=== PATIENT | female | born 1990 | race Caucasian/White ===

== ENCOUNTER 2018-05-21 08:01 | Emergency (ER) | payer OTHER ==
[2018-05-21 08:36] LABS: GLUCOSE, URINE (UA) NEGATIVE (NEGATIVE); KETONES,URINE (UA) >=80 mg/dL (NEGATIVE); LEUKOCYTE ESTERASE, URINE SMALL (NEGATIVE); NITRITE,URINE NEGATIVE (NEGATIVE); OCCULT BLOOD,URINE TRACE-LYSE (NEGATIVE); PROTEIN,URINE 30 mg/dL (NEGATIVE); UROBILINOGEN,URINE 1 (NORMAL) E.U./dL (NORMAL)
[2018-05-21 08:42] LABS: BASOPHILS # (AUTO) 0.1 10^3/uL (0.0-0.1); BASOPHILS % (AUTO) 0.5 %; EOSINOPHILS % (AUTO) 0.4 %; LYMPHOCYTES # (AUTO) 2.2 10^3/uL (1.5-3.5); LYMPHOCYTES % (AUTO) 20.6 %; MEAN CORPUSCULAR HEMOGLOBIN 29.6 pg (27.0-31.0); MEAN CORPUSCULAR HGB CONC 34.2 g/dL (32.0-36.0); MEAN CORPUSCULAR VOLUME 86.6 fL (81.0-99.0); MEAN PLATELET VOLUME 9.7 fL (7.9-10.8); MONOCYTES # (AUTO) 0.4 10^3/uL (0.0-1.0); MONOCYTES % (AUTO) 3.7 %; NEUTROPHILS # (AUTO) 8.1 10^3/uL (1.5-6.6); NEUTROPHILS % (AUTO) 74.8 %; PLT - PLATELET COUNT 225 10^3/uL (130-450); RED BLOOD COUNT 4.38 10^6/uL (4.20-5.40); WHITE BLOOD COUNT 10.8 x10^3/uL (4.8-10.8)
[2018-05-21 08:44] LABS: BILIRUBIN,URINE SMALL (NEGATIVE); CLARITY,URINE CLOUDY (CLEAR); HCG UR QUAL POSITIVE; ICTOTEST,URINE POSITIVE
[2018-05-21 08:53] LABS: BACTERIA,URINE Few /HPF (None Seen); MUCUS,URINE Moderate Strands; RBC,URINE 0-5 /HPF (0-5); SQUAMOUS EPITHELIAL CELL,UR MOD Squamous (<= Few)
[2018-05-21 08:58] LABS: ALBUMIN/GLOBULIN RATIO 1.3 (1.0-2.2); BILIRUBIN,TOTAL 0.9 mg/dL (0.2-1.0); CALCIUM 9.3 mg/dL (8.5-10.3); CREATININE 0.5 mg/dL (0.4-1.0); TOTAL PROTEIN 7.2 g/dL (6.7-8.2)
[2018-05-21] MEDS ORDERED: SODIUM CHLORIDE 0.9% 1,000 ML IV ONE (09:03)
--- NOTE | 2018-05-21 09:07 | ED Physician Documentation ---
History of Present Illness - Stated complaint Stated Complaint: SEIZURE - Chief complaint Chief Complaint: Neuro - History obtained from History obtained from: Patient, Family - History of Present Illness Timing: Today Pain level max: 0 Pain level now: 0 Improved by: nothing Worsened by: nothing - Additonal information Additional information: 27-year-old female was at home this morning talking to her when she felt lightheaded dizzy, flushed and warm. Crosby her vision go dark. states that she was standing" convulsing", this lasted for a few seconds she was speaking to him during this time. She then fell onto the floor and had convulsions that lasted approximately 30 seconds. No urinary incontinence. No bowel incontinence. No tongue biting. No head injury. Has never had seizures before. She has been having nausea and vomiting for the past 3-4 weeks. She has 3-4 weeks late on her menses. She did not appear to have a postictal state per the . Review of Systems Constitutional: denies: Fever, Chills Respiratory: denies: Cough GI: denies: Vomiting, Diarrhea Skin: denies: Rash Musculoskeletal: denies: Neck pain, Back pain Neurologic: reports: Headache (had a slight headache earlier. none now). denies: Focal weakness, Numbness, Confused PD PAST MEDICAL HISTORY - Past Medical History Past Medical History: No - Past Surgical History Past Surgical History: No - Present Medications Home Medications: Ambulatory Orders Medication Instructions Recorded Confirmed Nitrofurantoin Monohyd/M-Cryst 100 mg PO BID #10 capsule 05/21/18 [Macrobid 100 mg Capsule] Vitamin [Trinatal Rx 1] 1 each PO DAILY #30 tablet 05/21/18 - Allergies Allergies/Adverse Reactions: Allergies Allergy/AdvReac Type Severity Reaction Status Date / Time No Known Drug Allergies Allergy Verified 05/21/18 09:08 - Living Situation Living Situation: reports: With family Living Arrangement: reports: At home - Social History Does the pt smoke?: No Does the pt drink ETOH?: No Does the pt have substance abuse?: No - Family History Family history: reports: Non contributory - Immunizations Immunizations are current?: Yes PD ED PE NORMAL - Vitals Vital signs reviewed: Yes - General General: Alert and oriented X 3, No acute distress, Well developed/nourished - HEENT HEENT: Atraumatic, PERRL, EOMI, Ears normal, Moist mucous membranes, Pharynx benign - Neck Neck: Supple, no meningeal sign, No bony TTP - Cardiac Cardiac: RRR, No murmur, Strong equal pulses - Respiratory Respiratory: No respiratory distress, Clear bilaterally - Abdomen Abdomen: Soft, Non tender, Non distended - Derm Derm: Warm and dry, No rash - Extremities Extremities: No edema - Neuro Neuro: Alert and oriented X 3, communication coordinator 2-12 intact, No motor deficit, No sensory deficit, Normal speech Eye Opening: Spontaneous Motor: Obeys Commands Verbal: Oriented GCS Score: 15 - Psych Psych: Normal mood, Normal affect Results - Vitals Vitals: Vital Signs - 24 hr 05/21/18 05/21/18 05/21/18 08:06 09:01 09:30 Temperature 36.7 C Heart Rate 84 82 82 Respiratory 14 16 16 Rate Blood Pressure 113/69 106/67 107/82 H O2 Saturation 100 100 05/21/18 05/21/18 11:30 12:00 Temperature Heart Rate 80 75 Respiratory 16 16 Rate Blood Pressure 116/73 107/55 L O2 Saturation 97 98 Oxygen O2 Source Room air - EKG (time done) 0916 Rate: Rate (enter#) (73) Rhythm: NSR Huxley: Normal Intervals: Normal WI QRS: Normal Ischemia: Normal ST segments Computer interpretation: Agree with computer - Labs Labs: Laboratory Tests 05/21/18 05/21/18 05/21/18 08:12 08:20 08:30 WBC 10.8 RBC 4.38 Hgb 13.0 Hct 37.9 MCV 86.6 MCH 29.6 MCHC 34.2 RDW 12.0 Plt Count 225 MPV 9.7 Neut # (Auto) 8.1 H Lymph # (Auto) 2.2 Mobile # (Auto) 0.4 Eos # (Auto) 0.0 Baso # (Auto) 0.1 Absolute Nucleated RBC 0.01 Nucleated RBC % 0.1 Sodium Potassium Chloride Carbon Dioxide Anion Gap BUN Creatinine Estimated GFR (MDRD) Glucose POC Whole Bld Glucose 77 Calcium Phosphorus Magnesium Total Bilirubin AST ALT Alkaline Phosphatase Total Protein Albumin Globulin Albumin/Globulin Ratio Lipase HCG, Quant Urine Color YELLOW Urine Clarity CLOUDY Urine pH 6.0 Ur Specific [place] >=1.030 H Urine Protein 30 H Urine Glucose (UA) NEGATIVE Urine Ketones >=80 H Urine Occult Blood TRACE-LYSE Urine Nitrite NEGATIVE Urine Bilirubin SMALL H Urine Urobilinogen 1 (NORMAL) Ur Leukocyte Esterase SMALL H Urine RBC 0-5 Urine WBC 11-25 H Ur Squamous Epith Cells MOD Squamous H Urine Bacteria Few Urine Mucus Moderate Strands Ur Microscopic Review INDICATED Urine Culture Comments NOT INDICATED Urine HCG, Qual POSITIVE 05/21/18 05/21/18 05/21/18 08:30 08:30 09:21 WBC RBC Hgb Hct MCV MCH MCHC RDW Plt Count MPV Neut # (Auto) Lymph # (Auto) Mobile # (Auto) Eos # (Auto) Baso # (Auto) Absolute Nucleated RBC Nucleated RBC % Sodium 135 Potassium 3.0 L Chloride 104 Carbon Dioxide 22 Anion Gap 9.0 BUN 5 L Creatinine 0.5 Estimated GFR (MDRD) 150 Glucose 92 POC Whole Bld Glucose Calcium 9.3 Phosphorus 2.2 L Magnesium 2.1 Total Bilirubin 0.9 AST 18 ALT 14 Alkaline Phosphatase 39 L Total Protein 7.2 Albumin 4.0 Globulin 3.2 Albumin/Globulin Ratio 1.3 Lipase 29 HCG, Quant 459546.00 Urine Color Urine Clarity Urine pH Ur Specific [place] Urine Protein Urine Glucose (UA) Urine Ketones Urine Occult Blood Urine Nitrite Urine Bilirubin Urine Urobilinogen Ur Leukocyte Esterase Urine RBC Urine WBC Ur Squamous Epith Cells Urine Bacteria Urine Mucus Ur Microscopic Review Urine Culture Comments Urine HCG, Qual - Rads (name of study) head CT Radiology: Prelim report reviewed, EMP read contemporaneously, See rad report (normal) OB ultrasound Radiology: Prelim report reviewed, EMP read contemporaneously, See rad report (Single viable intrauterine at EGA 9 weeks 6 days with CLAIR 12/18/2018 based on crown-rump length, which is discordant with clinical dates by LMP. 2. Assigned dating is CLAIR 9 weeks 6 days based on current ultrasound. ) PD MEDICAL DECISION MAKING - ED course Complexity details: reviewed results, re-evaluated patient, considered differential, d/w patient, d/w family, d/w strategic consultant ED course: 27-year-old female with syncope versus seizure today. Upon further history the history is more consistent with a syncopal event with some myoclonic jerks. Discussed the case with OB, Dr. Rausch who recommends start on vitamins and follow-up for further care with her OB. Patient is a 1 para 0. Patient and family counseled regarding signs and symptoms for which I believe and urgent re-evaluation would be necessary. Patient with good understanding of and agreement to plan and is comfortable going home at this time This document was made in part using voice recognition software. While efforts are made to proofread this document, sound alike and grammatical errors may occur. Patient feels much better after IV fluids and potassium replacement. Will also treat for UTI. Departure - Departure Disposition: 01 Home, Self Care Clinical Impression: Dehydration, Hypokalemia Syncope Qualifiers: Syncope type: unspecified Qualified Code(s): R55 - Syncope and collapse Qualifiers: Weeks of gestation: 9 weeks Qualified Code(s): Z3A.09 - 9 weeks gestation of UTI (urinary tract infection) Qualifiers: Urinary tract infection type: acute cystitis Hematuria presence: without hematuria Qualified Code(s): N30.00 - Acute cystitis without hematuria Condition: Good Instructions: ED Dehydration, ED Care, ED Syncope Vasovagal, ED UTI Cystitis Female Follow-Up: [facility] [Provider Group] - Within 1 week Prescriptions: Nitrofurantoin Monohyd/M-Cryst [Macrobid 100 mg Capsule] 100 mg PO BID #10 capsu le Vitamin [Trinatal Rx 1] 1 each PO DAILY #30 tablet Comments: Take all antibiotics until gone. Return if you worsen. Follow-up with your doctor for further care. You need to see an OB within the next week. You need to drink plenty of fluids at home. Your testing shows that you are approximately 9 weeks and 6 days today. Discharge Date/Time: 05/21/18 12:05
[2018-05-21 09:21] LABS: MAGNESIUM 2.1 mg/dL (1.7-2.8); PHOSPHORUS 2.2 mg/dL (2.5-4.6)
--- NOTE | 2018-05-21 10:28 | CT Report ---
Reason: poss new onset seizure Procedure Date: 05/21/2018 Accession Number: [id number] / [id number] Procedure: CT - HEAD WO CPT Code: FULL RESULT: EXAM: CT HEAD EXAM DATE: 05/21/2018 12:00 AM. CLINICAL HISTORY: Possible new onset seizure. COMPARISON: None. TECHNIQUE: Multiaxial CT images were obtained from the foramen magnum to the vertex. Reformats: Sagittal and coronal. IV contrast: None. In accordance with CT protocol optimization, one or more of the following dose reduction techniques were utilized for this exam: automated exposure control, adjustment of mA and/or KV based on patient size, or use of iterative reconstructive technique. FINDINGS: Parenchyma: No intraparenchymal hemorrhage. No evidence of mass, midline shift. Prasad-white differentiation is distinct. Extraaxial Spaces: Normal for age. No subdural or epidural collections identified. Ventricles: Normal in size and position. Sinuses and Orbits: The right maxillary sinus contains 2 large mucoid retention cysts which are only partially imaged as well as a periodontal cyst protruding into the floor of the maxillary sinus, overall suggestive of odontogenic right maxillary sinus disease. Again, partially imaged. Bones: No evidence of fracture or calvarial defect. Other: None. IMPRESSION: No acute intracranial abnormality. Suspect odontogenic maxillary sinus disease. RADIA
--- NOTE | 2018-05-21 11:52 | Ultrasound Report ---
Reason: , poss seizure Procedure Date: 05/21/2018 Accession Number: [id number] / [id number] Procedure: US - OB First Trimester CPT Code: FULL RESULT: EXAM: FIRST TRIMESTER OBSTETRIC ULTRASOUND (Less than 11 weeks) EXAM DATE: 05/21/2018 10:12 AM. CLINICAL HISTORY: Positive beta-hCG, possible seizure. LMP: 04/06/2018. COMPARISONS: None. TECHNIQUE: Transabdominal and transvaginal ultrasound examination with static image documentation. CLINICAL DATES: EGA 6 weeks 3 days with CLAIR 01/11/2019 based on LMP. ASSESSMENT: Gestational Sac: Single intrauterine. Mean gestational sac diameter: 60 mm. Embryo: CRL (crown-rump length) 32.4 mm = 9 weeks 6 days. Cardiac activity: 168 beats per minute. Yolk sac: 3.8 mm. Amniotic fluid: Not accurately assessed at this gestational age. Early placenta: Not visible at this gestational age. Other: No perigestational fluid collection demonstrated. MATERNAL STRUCTURES: Uterus: Anteverted. Unremarkable. Cervix: Closed. Right Ovary/Adnexa: The ovary measures 2.0 x 2.8 x 1.6 cm, volume 4.7 cc. Unremarkable. Left Ovary/Adnexa: The ovary measures 4.1 x 3.5 x 2.2 cm, volume 16.5 cc. Corpus luteum cyst is noted, 2.1 cm. Free Fluid: None. Other: None. IMPRESSION: 1. Single viable intrauterine at EGA 9 weeks 6 days with CLAIR 12/18/2018 based on crown-rump length, which is discordant with clinical dates by LMP. 2. Assigned dating is CLAIR 9 weeks 6 days based on current ultrasound. RADIA
[2018-05-21] MEDS ORDERED: POTASSIUM BICARB 25 MEQ TABLET PO STA (11:53)
[2018-05-21 13:12] VITALS: BP 107/55
== END 2018-05-21 12:05 | disposition home or self-care (01) ==
LOC: ED 08:01
DX: O99.89 Other specified diseases and conditions complicating pregnancy, childbirth and the puerperium (principal); O23.11 Infections of bladder in pregnancy, first trimester; E86.0 Dehydration; E87.6 Hypokalemia; R55 Syncope and collapse; Z3A.09 9 weeks gestation of pregnancy
CPT/HCPCS: 36415; 70450; 76801; 76817; 80053; 81001; 81025; 83690; 83735; 84100; 84702; 85025; 93005; 96360; 96361; 99283; 99284; A9270; 81003; 87086

== ENCOUNTER 2018-09-08 08:37 | Outpatient (CLI) | payer OTHER ==
[2018-09-08 08:59] VITALS: BP 113/71
[2018-09-08 09:53] LABS: BASOPHILS % (AUTO) 0.2 %; EOSINOPHILS # (AUTO) 0.1 10^3/uL (0.0-0.7); EOSINOPHILS % (AUTO) 0.6 %; HGB - HEMOGLOBIN 10.7 g/dL (12.0-16.0); LYMPHOCYTES # (AUTO) 2.3 10^3/uL (1.5-3.5); MEAN CORPUSCULAR HEMOGLOBIN 30.2 pg (27.0-31.0); MEAN CORPUSCULAR VOLUME 91.5 fL (81.0-99.0); MEAN PLATELET VOLUME 11.1 fL (7.9-10.8); MONOCYTES # (AUTO) 0.8 10^3/uL (0.0-1.0); MONOCYTES % (AUTO) 5.6 %; NEUTROPHILS # (AUTO) 11.1 10^3/uL (1.5-6.6); NEUTROPHILS % (AUTO) 76.8 %; PLT - PLATELET COUNT 189 10^3/uL (130-450); RED BLOOD COUNT 3.54 10^6/uL (4.20-5.40); WHITE BLOOD COUNT 14.5 x10^3/uL (4.8-10.8)
[2018-09-08 14:01] LABS: BILIRUBIN,URINE NEGATIVE (NEGATIVE); CLARITY,URINE CLEAR (CLEAR); GLUCOSE, URINE (UA) NEGATIVE (NEGATIVE); KETONES,URINE (UA) NEGATIVE (NEGATIVE); LEUKOCYTE ESTERASE, URINE NEGATIVE (NEGATIVE); NITRITE,URINE NEGATIVE (NEGATIVE); OCCULT BLOOD,URINE NEGATIVE (NEGATIVE); PROTEIN,URINE NEGATIVE (NEGATIVE); UROBILINOGEN,URINE 0.2 (NORMAL) E.U./dL (NORMAL)
--- NOTE | 2018-09-08 14:50 | Ultrasound Report ---
Reason: abd pain and vag bleeding Procedure Date: 09/08/2018 Accession Number: [id number] / [id number] Procedure: US - OB F/U or Repeat CPT Code: FULL RESULT: EXAM: FOLLOW-UP OBSTETRICAL ULTRASOUND EXAM DATE: 09/08/2018 10:44 AM. CLINICAL HISTORY: Abdominal pain and vaginal bleeding. COMPARISON: First trimester obstetric ultrasound dated 05/21/2018. TECHNIQUE: Real-time sonographic evaluation of the fetus performed by the stamping press operator. Multiple risk control field representative static images were saved for review. DATING: Established EGA 25 weeks 5 days with CLAIR 12/17/2018 based on working due date. EGA 25 weeks 4 days with CLAIR 12/18/2018 based on prior ultrasound. EGA 25 weeks 6 days with CLAIR 12/16/2018 based on the current ultrasound. GENERAL EVALUATION Rey . Cardiac activity: 141 bpm. movement: Visualized. Presentation: Cephalic. Placenta: Anterior position. Amniotic fluid: Normal. GARLAND 14.4 cm. MVP 5.6 cm. BIOMETRY Bi-Parietal Diameter (BPD): 6.6 cm, 26 weeks 4 days Head Circumference (HC): 24 cm, 26 weeks 1 day Abdominal Circumference (AC): 20.3 cm, 25 weeks 0 days Femur Length (FL): 4.7 cm, 25 weeks 5 days Estimated Weight: 806 g, 27th percentile for 25 weeks 5 days. MATERNAL STRUCTURES Cervix is long and closed measuring 4.0 cm transabdominally. IMPRESSION: 1. Rey live intrauterine with gestational age 25 weeks 5 days based on working due date. 2. Estimated weight is within expected limits for assigned dating. 3. Normal interval growth compared to date of prior biometry. RADIA
[2018-09-08 18:09] LABS: CANDIDA GROUP DNA INDETERMINATE ERROR (NEGATIVE); CANDIDA KRUSEI DNA INDETERMINATE ERROR (NEGATIVE); TRICHOMONAS VAGINALIS DNA INDETERMINATE ERROR (NEGATIVE)
--- NOTE | 2018-09-09 15:10 | HISTORY & PHYSICAL EXAMINATION ---
DATE OF SERVICE: 09/08/2018 Physician: Freddy Romano MD PATIENT IDENTIFICATION: Patient is a 27-year-old G1, P0 female who is currently 23.6 weeks EGA. EDC is 2018. She has been having her care at [facility]. CHIEF COMPLAINT: Bright red vaginal bleeding. HISTORY OF PRESENT ILLNESS: The patient states roughly o'clock in the morning, she developed bright red vaginal bleeding. She denies any recent intercourse. Denies any activity. Denies any trauma. Denies any pelvic pain. She states that she had some minimal cramping this morning. She denies any precipitating procedures. She denies any previous surgery. PAST MEDICAL HISTORY: None. 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 ALLERGIES: NONE KNOWN. CURRENT MEDICATIONS: vitamins. HABITS: Patient denies use of alcohol, tobacco, street or addictive drugs, or marijuana. 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 PHYSICAL EXAMINATION GENERAL: Well-developed, well-nourished female. She is in no acute distress. HEENT: Pupils appear equal and round. Extraocular muscles are intact. HEART: Regular rate and rhythm without murmurs. LUNGS: Lung strauss are clear without rales or wheezes. ABDOMEN: Gravid roughly 26 cm in height. There is no tenderness noted throughout the entire abdomen . She does have some groin tenderness. IMPRESSION: Long and closed. There is evidence of a yeast infection with multiple clumping white cl umps. DTRs are 2+. Ultrasound performed showed a normal long, closed cervix. The placenta did not show evidence of any abruption. Infant was active. CBC was obtained and noted to be normal. Upon r eviewing her chart, she was noted to be Rh positive. PLAN: Monitored patient. She showed no further bleeding or cramping. Her urine CBC ultrasound were all noted to be within normal limits. At this particular point, we are sending her home. She is to follow up within the next week to see her provider at [facility]. TD: 09/09/2018 13:48
== END 2018-09-08 15:30 | disposition home or self-care (01) ==
LOC: WFO 08:37 → FBP 08:38 → WFO 15:30
PROVIDERS: ATTEND Obstetrics & Gynecology
DX: O46.92 Antepartum hemorrhage, unspecified, second trimester (principal); O98.812 Other maternal infectious and parasitic diseases complicating pregnancy, second trimester; B37.9 Candidiasis, unspecified; Z3A.23 23 weeks gestation of pregnancy
CPT/HCPCS: 76816; 81001; 81003; 85025; 87077; 87081; 87086; 87181; 87661; 87797; 87801; 99214

== ENCOUNTER 2018-11-23 02:53 | Outpatient (CLI) | payer OTHER ==
[2018-11-23 03:26] VITALS: BP 126/76
--- NOTE | 2018-12-02 09:46 | PROVIDER PROGRESS NOTE ---
- HPI Chief Complaint: Labor (36.4 weeks Roleout laboe.) Current : Vital Signs Temperature 36.7 C 11/23/18 03:11 Heart Rate 103 H 11/23/18 03:11 Respiratory Rate 20 11/23/18 03:11 Blood Pressure 126/76 11/23/18 03:11 O2 Saturation 99 11/23/18 03:11 Temperature 36.7 C 11/23/18 03:11 Heart Rate 103 H 11/23/18 03:11 Respiratory Rate 20 11/23/18 03:11 Blood Pressure 126/76 11/23/18 03:11 O2 Saturation 99 11/23/18 03:11 - Procedures OB Procedure Performed: NST (reactive NST) Diagnosis/Indication for NST: labor (rule out labor 36.4 weeks) - Plan Plan: reviewed S/S of Labor, SROM, FM.
== END 2018-11-23 05:10 | disposition home or self-care (01) ==
LOC: WFO 02:53 → FBP 03:02 → WFO 05:10
PROVIDERS: ATTEND Obstetrics & Gynecology
DX: O47.03 False labor before 37 completed weeks of gestation, third trimester (principal); Z3A.36 36 weeks gestation of pregnancy
CPT/HCPCS: 99213

== ENCOUNTER 2018-11-30 16:52 | Outpatient (CLI) | payer OTHER ==
[2018-11-30 17:16] VITALS: BP 121/74
--- NOTE | 2018-11-30 20:01 | PROVIDER PROGRESS NOTE ---
- HPI Chief Complaint: Other (Patient is a 27-year-old G1, P0 at 37 weeks 4 days estimated gestational age here with labor check. Patient arrived via ambulance today. She reports that she went to the bathroom, and noted blood in the toilet after she urinated. About 15 minutes later she started having increasing abdominal pain. She is unclear on her description of it. She thinks it may be getting worse. No loss of fluid. No further vaginal bleeding. Baby is moving. has been uncomplicated to date.She is GBS positive.) Current : Current EDU 12/17/18 Gestation 37 Weeks and 4 Days 1 Para 0 Vital Signs Temperature 99.0 F 11/30/18 16:52 Heart Rate 110 H 11/30/18 16:52 Respiratory Rate 18 11/30/18 16:52 Blood Pressure 121/74 11/30/18 16:52 O2 Saturation 100 11/30/18 16:52 Temperature 99.0 F 11/30/18 16:52 Heart Rate 110 H 11/30/18 16:52 Respiratory Rate 18 11/30/18 16:52 Blood Pressure 121/74 11/30/18 16:52 O2 Saturation 100 11/30/18 16:52 - Exam GEN: NAD RESP: normal effort CV: RRR ABD: gravid,S&ND. Mildly tender in LLQ DIGITAL MANAGER: Mild vulvar swelling, no VB SVE: FT/long/high per RN exam EFM: 135 mod harika 15x15 accels no decels TOCO: irregular/irritable - Procedures NST Procedure: Cat I tracing Service Date of procedure: 11/30/18 Procedure Details: Cat I tracing Early prodromal labor Will observe over 2-4 hours Admit for labor with advance in cervical dilation Cannot augment given early gestational age
== END 2018-11-30 20:38 | disposition home or self-care (01) ==
LOC: WFO 16:52 → FBP 16:54 → WFO 20:38
PROVIDERS: ATTEND Obstetrics & Gynecology
DX: O99.820 Streptococcus B carrier state complicating pregnancy (principal); Z3A.37 37 weeks gestation of pregnancy
CPT/HCPCS: 59025; 99213

== ENCOUNTER 2018-12-07 11:30 | Outpatient (CLI) | payer OTHER ==
[2018-12-07 11:49] VITALS: BP 124/81
--- NOTE | 2018-12-11 19:08 | PROVIDER PROGRESS NOTE ---
- HPI Chief Complaint: Decreased movement Current : Current EDU 12/17/18 Gestation 38 Weeks and 4 Days 1 Para 0 Vital Signs Temperature 98.4 F 12/07/18 11:40 Heart Rate 89 12/07/18 11:40 Respiratory Rate 18 12/07/18 11:40 Blood Pressure 124/81 H 12/07/18 11:40 O2 Saturation 98 12/07/18 11:40 Temperature 98.4 F 12/07/18 11:40 Heart Rate 89 12/07/18 11:40 Respiratory Rate 18 12/07/18 11:40 Blood Pressure 124/81 H 12/07/18 11:40 O2 Saturation 98 12/07/18 11:40 - Exam 28 yo at 38w4d EGA with decreased FM EFM 140 mof harika 15x15 accels no decels TOCO: Quiet - Procedures OB Procedure Performed: NST Diagnosis/Indication for NST: Decreased movement NST Procedure: NST Procedure Start Date 12/07/18 Start Time 11:38 Stop Time 12:14 Vibroacoustic Stimulation Used No Patient States Movement Yes Service Date of procedure: 12/07/18 Procedure Details: Cat I tracing Has appointment with primary OB tomorrow. Instructed in kick counts and to follow-up JACQUELYN if less than 10 movements for a 2 hour window. Reviewed warning signs and instructed patient to come in for evaluation for decreased FM if decreased FM persists after the two hour period of home observation; or sooner.
== END 2018-12-07 12:30 | disposition home or self-care (01) ==
LOC: WFO 11:30 → FBP 11:31 → WFO 12:30
PROVIDERS: ATTEND Obstetrics & Gynecology
DX: O36.8130 Decreased fetal movements, third trimester, not applicable or unspecified (principal); Z3A.38 38 weeks gestation of pregnancy
CPT/HCPCS: 59025; 99213

== ENCOUNTER 2019-02-11 08:33 | Emergency (ER) | payer OTHER ==
[2019-02-11 08:48] VITALS: BP 125/85
--- NOTE | 2019-02-11 09:04 | ED Physician Documentation ---
PD HPI FEMALE - Stated complaint Stated Complaint: FEMALE - Chief complaint Chief Complaint: General - History obtained from History obtained from: Patient - History of Present Illness Timing - onset: Last night Timing - details: Abrupt onset, Still present (using about 4-6 pads since yesterday, with brighter blood. Had not had intercourse nor tampons. Had post visit with exam few days ago and was normal (had had episiotomy that healed okay).) Associated symptoms: Vaginal bleeding. No: Fever, Pelvic pain, Vaginal pain, Vaginal discharge, Genital sore/lesion, Dysuria Contributing factors: Other (7 weeks post ) Review of Systems Constitutional: denies: Fever, Chills, Myalgias Nose: denies: Rhinorrhea / runny nose, Congestion Throat: denies: Sore throat Respiratory: denies: Cough GI: denies: Abdominal Pain, Nausea, Vomiting : reports: Vaginal bleeding. denies: Dysuria, Frequency Musculoskeletal: denies: Back pain PD PAST MEDICAL HISTORY - Past Medical History Cardiovascular: Other - Past Surgical History Past Surgical History: No Cardiovascular: Other - Present Medications Home Medications: Ambulatory Orders Medication Instructions Recorded Confirmed Nitrofurantoin Monohyd/M-Cryst 100 mg PO BID #10 capsule 05/21/18 [Macrobid 100 mg Capsule] Vitamin [Trinatal Rx 1] 1 each PO DAILY #30 tablet 05/21/18 Norethindrone-E.estradiol-Iron 1 each PO DAILY #1 packet 02/11/19 [Loestrin Fe 1-20 Tablet] - Allergies Allergies/Adverse Reactions: Allergies Allergy/AdvReac Type Severity Reaction Status Date / Time No Known Drug Allergies Allergy Verified 02/11/19 08:48 - Social History Does the pt smoke?: No Smoking Status: Never smoker Does the pt drink ETOH?: No Does the pt have substance abuse?: No - Immunizations Immunizations are current?: Yes PD ED PE NORMAL - Vitals Vital signs reviewed: Yes - General General: Alert and oriented X 3, No acute distress, Well developed/nourished - Abdomen Abdomen: Soft, Non tender, Non distended - Female Female : Deferred - Back Back: No CVA TTP - Derm Derm: Normal color, Warm and dry Results - Vitals Vitals: Vital Signs - 24 hr 02/11/19 08:44 Temperature 36.8 C Heart Rate 64 Respiratory 16 Rate Blood Pressure 125/85 H O2 Saturation 98 Oxygen O2 Source Room air PD MEDICAL DECISION MAKING - ED course Complexity details: considered differential (7 weeks post without discharge, fever, no intercourse. Having vaginal bleeding without pain. Presume most likely is start of menses. ), d/w patient Departure - Departure Disposition: 01 Home, Self Care Clinical Impression: Vaginal bleeding Condition: Stable Record reviewed to determine appropriate education?: Yes Instructions: ED Bleed Irregular Vaginal Follow-Up: Jose Santos ARNP [Primary Care Provider] - Freddy Lange MD [Physician No Access] - Prescriptions: Norethindrone-E.estradiol-Iron [Loestrin Fe 1-20 Tablet] 1 each PO DAILY #1 packet Comments: This may likely be the start of your menstrual cycle and the first 1 can often be a bit heavier. Tylenol or ibuprofen if needed for cramps or pains. Contact your primary care or gynecology if it persists more than a few more days. Alternatively you could also start on a control packet and see if that decreases the bleeding over a day or 2. For now you could just see how the bleeding goes over the next day or 2 and see if it tapers down as most likely well. Discharge Date/Time: 02/11/19 09:32
== END 2019-02-11 09:32 | disposition home or self-care (01) ==
LOC: ED 08:33
DX: N93.9 Abnormal uterine and vaginal bleeding, unspecified (principal)
CPT/HCPCS: 99282; 99284